=== PATIENT | male | born 1950 | race Caucasian/White ===

== ENCOUNTER → 2022-01-01 | Outpatient (CLI) | payer MEDICARE, OTHER | LOC: ORTHO 13:24 | PROVIDERS: ATTEND Orthopaedic Surgery | DX: M65.342 Trigger finger, left ring finger (principal) | CPT/HCPCS: 20550; G0463 ==

== ENCOUNTER → 2022-01-29 | Outpatient (CLI) | payer MEDICARE, OTHER | LOC: ORTHO 09:15 | PROVIDERS: ATTEND Orthopaedic Surgery | DX: M65.342 Trigger finger, left ring finger (principal); E78.00 Pure hypercholesterolemia, unspecified; I10 Essential (primary) hypertension | CPT/HCPCS: 99213 ==